=== PATIENT | male | born 1980 | race Caucasian/White ===

== ENCOUNTER 2017-11-24 12:50 | Emergency (ER) | payer OTHER ==
[2017-11-24 12:57] VITALS: BP 135/94; PULSE 99; RESP 16; TEMP 97; O2SAT 100
--- NOTE | 2017-11-24 13:23 | ED PDOC ---
HPI: General Adult Time Seen by Provider: 11/24/17 13:12 Chief Complaint (Nursing): ENT Problem Chief Complaint (Provider): Ear Problem History Per: Patient History/Exam Limitations: no limitations Onset/Duration Of Symptoms: Days (x 4) Current Symptoms Are (Timing): Still Present Additional Complaint(s): Brooks is a 37 y/o male who presents to the ED complaining of feeling like his left ear is clogged for the past 4 days. Patient is worried that something is stuck in his ear and states he could not go to a doctor until today because he was travelling out of [facility]. He also complains of a throbbing sensation in his left ear and swelling on the left side of his face. PMD: Florina Gonzales Past Medical History Reviewed: Historical Data, Nursing Documentation, Vital Signs Vital Signs: Last Vital Signs Temp 97.0 F L 11/24/17 12:53 Pulse 99 H 11/24/17 12:53 Resp 16 11/24/17 12:53 BP 135/94 H 11/24/17 12:53 Pulse Ox 100 11/24/17 13:27 - Medical History PMH: No Chronic Diseases - Family History Family History: States: Diabetes - Immunization History Hx Tetanus Toxoid Vaccination: No Hx Influenza Vaccination: No Hx Pneumococcal Vaccination: No - Home Medications Home Medications: Ambulatory Orders Medication Instructions Recorded Amoxicillin/Clavulanate [Augmentin 1 tab PO BID #20 tab 08/26/16 875 MG-125 MG] Naproxen [Naprosyn] 1 tab PO BID PRN #20 tab 08/26/16 Neomycin/Polymyxin/Hydrocort 4 drop QID #1 bottle 11/24/17 [Cortisporin Otic Soln] - Allergies Allergies/Adverse Reactions: Allergies Allergy/AdvReac Type Severity Reaction Status Date / Time No Known Allergies Allergy Verified 11/24/17 12:53 Review of Systems ROS Statement: Except As Marked, All Systems Reviewed And Found Negative ENT: Positive for: Ear Pain (left ear swelling and throbbing) Physical Exam - Reviewed Nursing Documentation Reviewed: Yes Vital Signs Reviewed: Yes - Physical Exam Appears: Positive for: Well, Non-toxic, No Acute Distress Skin: Positive for: Normal Color, Warm, Dry ENT: Positive for: TM Is/Are (no erythema noted), Other (mild exudate and edema left ear canal) Neurologic/Psych: Positive for: Alert, Oriented - ECG O2 Sat by Pulse Oximetry: 100 (RA) Pulse Ox Interpretation: Normal Medical Decision Making Medical Decision Making: Time: 13:12 Initial Impression: Ear Infection Initial Plan: --Accucheck due to family history of diabetes --Patient will be discharged with antibiotics. Follow up with PMD or urgent care if symptoms do not improve after antibiotics. Return if symptoms worsen. Scribe Attestation: Documented by Blane Patel, acting as a scribe for Eric Boggs PA-C Provider Scribe Attestation: All medical record entries made by the Scribe were at my direction and personally dictated by me. I have reviewed the chart and agree that the record accurately reflects my personal performance of the history, physical exam, medical decision making, and the department course for this patient. I have also personally directed, reviewed, and agree with the discharge instructions and disposition. Disposition - Clinical Impression Clinical Impression: Otitis externa - Patient ED Disposition Is Patient to be Admitted: No Counseled Patient/Family Regarding: Studies Performed, Diagnosis, Need For Followup, Rx Given - Disposition Referrals: Regan Ortiz MD [Staff Provider] - Disposition: Routine/Home Disposition Time: 13:15 Condition: FAIR Prescriptions: Neomycin/Polymyxin/Hydrocort [Cortisporin Otic Soln] 4 drop QID #1 bottle Instructions: Outer Ear Infection (DC) Forms: [employer] ([place]), [facility] ED School/Work Excuse
== END 2017-11-24 13:43 | disposition home or self-care (01) ==
LOC: H.ER 12:50
DX: H60.92 Unspecified otitis externa, left ear (principal); Z83.3 Family history of diabetes mellitus